=== PATIENT | female | born 1985 | race Caucasian/White ===

== ENCOUNTER 2018-02-04 21:01 | Emergency (ER) | payer MEDICAID ==
[~2018-02-04] VITALS: Ht 149.9 cm; Wt 87.6 kg
[2018-02-04 21:16] VITALS: BP 146/81; Ht 149.9 cm; Wt 87.6 kg
== END 2018-02-04 22:37 | disposition home or self-care (01) ==
LOC: ED 21:01
DX: K08.89 Other specified disorders of teeth and supporting structures (principal)
CPT/HCPCS: Q0162